=== PATIENT | female | born 1995 | race Caucasian/White ===

== ENCOUNTER 2019-03-05 11:17 | Emergency (ER) | payer OTHER ==
[~2019-03-05] VITALS: Ht 165.1 cm; Wt 68.9 kg
[2019-03-05 11:35] VITALS: BP_SYST 106
--- NOTE | 2019-03-05 12:37 | NUR ---
Pt LWBS at this time per admitting.
== END 2019-03-05 12:37 | disposition still patient (30) ==
LOC: SED 11:17
DX: O29.41 Spinal and epidural anesthesia induced headache during pregnancy, first trimester (principal); Z3A.13 13 weeks gestation of pregnancy; Z53.21 Procedure and treatment not carried out due to patient leaving prior to being seen by health care provider